=== PATIENT | male | born 1935 | race Caucasian/White ===

== ENCOUNTER 2017-12-08 02:27 | Emergency (ER) | payer OTHER ==
[~2017-12-08] VITALS: Ht 167.6 cm; Wt 68.2 kg
[~2017-12-08 02:27] MED LIST: AMLO2.5T PO; MECL-111 PO; ONDA4 PO; PRAV40TA4 PO
[2017-12-08] MEDS ORDERED: GLYC1TAB11 PO (02:38)
[2017-12-08] MEDS ORDERED: MS100DRIP PO (02:38)
[2017-12-08] MEDS ORDERED: MORPHINE SULFATE 4 MG/ML SYRINGE IVP ONE (03:00)
[2017-12-08] MEDS ORDERED: SODIUM CHLORIDE 0.9% 1,000 ML IV ONE (03:00)
[2017-12-08 03:58] VITALS: BP 133/88
== END 2017-12-08 04:55 | disposition home or self-care (01) ==
LOC: EMS 02:28
DX: C34.90 Malignant neoplasm of unspecified part of unspecified bronchus or lung (principal); F03.90 Unspecified dementia, unspecified severity, without behavioral disturbance, psychotic disturbance, mood disturbance, and anxiety; I10 Essential (primary) hypertension; E78.00 Pure hypercholesterolemia, unspecified; E11.9 Type 2 diabetes mellitus without complications; I25.10 Atherosclerotic heart disease of native coronary artery without angina pectoris
CPT/HCPCS: 96374; 99284; J2270; J7030